=== PATIENT | female | born 1965 | race Caucasian/White ===

== ENCOUNTER 2016-06-30 11:37 | Emergency (ER) | payer SELFPAY ==
[~2016-06-30] VITALS: Ht 152.4 cm; Wt 72.0 kg
[~2016-06-30 11:37] MED LIST: ADVA500A INH; AZIT250T3 PO; PRIL20CA9 PO; ZOFR4TAB3 SL
[2016-06-30 11:39] VITALS: BP 214/90; PULSE 60; RESP 20; TEMP 97.7; O2SAT 95
[2016-06-30 12:30] VITALS: BP 176/81; PULSE 55; RESP 16; TEMP 98; O2SAT 96
[2016-06-30] MEDS ORDERED: DIAZEPAM 5 MG TAB PO ONE (12:45)
[2016-06-30] MEDS ORDERED: ACETAMINOPHEN/CODEINE 300 MG/30 MG TAB PO ONE (12:45)
--- NOTE | 2016-06-30 13:08 | PD ---
HPI Chief Complaint: Musculoskeletal Complaint Time Seen by Provider: 12:31 Travel History International Travel<30 days: No Contact w/Intl Traveler<30days: No Traveled to known affect area: No History of Present Illness HPI Patient is a 51-year-old female who presents to emergency room for evaluation of right shoulder pain and left shoulder pain which has been ongoing for the past few weeks. She reports that her right shoulder was initially hurting her, reports that moving her shoulder exacerbated the pain. Reports that now she is having increased pain to her left shoulder. Patient reports that if she moves her shoulders any way, "it hurts." Denies any trauma or any heavy lifting. Denies chest pains/sob. Reports that she sometimes notices pain from her neck to her arms as well. Patient reports that she did try taking ibuprofen with minimal relief of symptoms. PFSH Past Medical History Hx Anticoagulant Therapy: No Asthma: Yes Cardiovascular Problems: No Chemotherapy: No COPD: Yes Cerebrovascular Accident: No Diabetes: No GERD: Yes Respiratory: Yes (ASTHMA) Immunizations Current: Yes Thyroid Disease: Yes ?: Not Menopausal: Yes Past Surgical History Hysterectomy: Yes Social History Alcohol Use: Yes (several times per week) Tobacco Use: Yes Substance Use: No Allergies-Medications (Allergen,Severity, Reaction): Coded Allergies: Amoxicillin (Verified Allergy, Severe, rash, 02/29/16) Metronidazole (Verified Allergy, Severe, Hives, 02/29/16) Reported Meds & Prescriptions Reported Meds & Active Scripts Active Valium (Diazepam) 5 Mg Tab 5 Mg PO BID PRN Zofran Odt (Ondansetron Odt) 4 Mg Tab 4 Mg SL Q6HR PRN Reported Advair Diskus Inh (Fluticasone-Salmeterol Inh) 500-50 Mcg/Blist Aer 1 Puff INH BID Rinse mouth after use. Prilosec (Omeprazole) 20 Mg Cap 20 Mg PO DAILY Review of Systems General / Constitutional: No: Fever Eyes: No: Visual changes HENT: No: Headaches Cardiovascular: No: Chest Pain or Discomfort Respiratory: No: Shortness of Breath Gastrointestinal: No: Abdominal Pain Genitourinary: No: Dysuria Musculoskeletal: Positive: Limited ROM (b/l shoulder), No: Pain Skin: No Rash Neurologic: No: Weakness Psychiatric: No: Depression Endocrine: No: Polydipsia Hematologic/Lymphatic: No: Easy Bruising Physical Exam Narrative GENERAL: No acute distress, nontoxic SKIN: Warm and dry. HEAD: Atraumatic. Normocephalic. EYES: Pupils equal and round. No scleral icterus. No injection or drainage. ENT: No nasal bleeding or discharge. Mucous membranes pink and moist. NECK: Trachea midline. No JVD. No midline tenderness CARDIOVASCULAR: Regular rate and rhythm. No murmur appreciated. RESPIRATORY: No accessory muscle use. Clear to auscultation. Breath sounds equal bilaterally. GASTROINTESTINAL: Abdomen soft, non-tender, nondistended. Hepatic and splenic margins not palpable. MUSCULOSKELETAL: No obvious deformities. No clubbing. No cyanosis. No edema. Patient with pain with range of motion of the left and right shoulder, no obvious deformities, pulses intact, no obvious open fracture, neurovascularly intact NEUROLOGICAL: Awake and alert. No obvious cranial nerve deficits. Motor grossly within normal limits. Normal speech. PSYCHIATRIC: Appropriate mood and affect; insight and judgment normal. Data Data Last Documented VS Vital Signs Date Time Temp Pulse Resp B/P Pulse Ox O2 Delivery O2 Flow Rate FiO2 06/30/16 12:30 98.0 55 16 176/81 96 06/30/16 11:39 Room Air Orders Shoulder, Complete (>2vws) (06/30/16 ) Shoulder, Complete (>2vws) (06/30/16 ) Spine, Cervical - Ltd (Ap&Lat) (06/30/16 ) Diazepam (Valium) (06/30/16 12:45) Acetamin-Codeine 300-30 Mg (Tylenol-Code (06/30/16 12:45) MDM Medical Decision Making Medical Screen Exam Complete: Yes Emergency Medical Condition: Yes Interpretation(s) EKG at 1515 sinus bradycardia at 53 beats minute, QT/QTc 440/432, incomplete right branch block, no acute ST or T-wave changes Vital Signs Date Time Temp Pulse Resp B/P Pulse Ox O2 Delivery O2 Flow Rate FiO2 06/30/16 12:30 98.0 55 16 176/81 96 06/30/16 11:39 97.7 60 20 214/90 95 Room Air Last Impressions Shoulder X-Ray 06/30/16 0000 Signed Impressions: Service Date/Time: June 13:51 - CONCLUSION: No acute fracture. Bryce Hill MD Shoulder X-Ray 06/30/16 0000 Signed Impressions: Service Date/Time: June 13:54 - CONCLUSION: Unremarkable examination of the left shoulder. Kiko Mejía MD Cervical Spine X-Ray 06/30/16 0000 Signed Impressions: Service Date/Time: June 13:48 - CONCLUSION: Straightening otherwise unremarkable cervical spine. Bryce Hill MD Differential Diagnosis Muscle strain, cervical neck strain, arthritis, cervical radiculopathy Narrative Course Patient is a 51-year-old female who presents to emergency room with complaints of pain to her right shoulder as well as left shoulder which has been ongoing for the past few weeks. Patient with no overt trauma to her shoulders. Patient reports pain with range of motion to her shoulders. Patient with no chest pain or shortness breath at this time, patient reports that she did try taking Motrin with minimal relief of symptoms. On evaluation, patient does have pain with range of motion to both shoulders. Discussed concerns of possible arthritis to shoulders. Plan to obtain x-rays of shoulders. Will give patient pain medications as well as muscle relaxers. Patient reevaluated, patient reports that she is feeling much better at this time. I reviewed x-ray results with patient. Copies of x-rays were given to patient. Given that her symptoms have been going on for the past few weeks, will have patient follow-up with orthopedic surgery as outpatient. Patient understands that she should not drive or operate heavy machinery while taking narcotic pain medications or muscle lashes. Diagnosis Primary Impression: Shoulder pain, bilateral Qualified Code: M25.511 - Acute pain of both shoulders Referrals: Surendra Kaiser MD Patient Instructions: Narcotic given in the ED, General Instructions Departure Forms: Tests/Procedures, Work Release Enter return to work date: Jul 04, 2016 Additional Instructions: Please follow-up with a primary care doctor as soon as possible Please follow-up with orthopedic surgeon as soon as possible Return to emergency room as needed Patient cannot drive or operate heavy machinery while taking narcotic pain medications Scripts Acetaminophen-Codeine (Tylenol-Codeine #3)300-30 mg Tab1 Tab PO Q4H PRN (PAIN) # 10 TAB Ref 0 Prov:Alona Simpson DO 06/30/16 Diazepam (Valium)5 Mg Tab5 Mg PO BID PRN (SPASM) #10 TAB Ref 0 Prov:Alona Simpson DO 06/30/16 Disposition: 01 DISCHARGE HOME Condition: Stable Alona Simpson DO Jun 30, 2016 13:08
--- NOTE | 2016-06-30 14:31 | RADRPT ---
EXAM DATE/TIME: 06/30/2016 13:48 [facility] COMPARISON: No previous studies available for comparison. INDICATIONS : Neck pain, no known trauma. MEDICAL HISTORY : None. SURGICAL HISTORY : None. ENCOUNTER: Initial ACUITY: 1 month PAIN SCORE: 10/10 LOCATION: Bilateral neck FINDINGS: Two projection examination was performed. There is straightening. No evidence of fracture or sublux ation. Vertebral body height is maintained. The disc spaces are maintained. The prevertebral soft tissues are of normal thickness. The atlanto-axial articulation is intact. CONCLUSION: Straightening otherwise unremarkable cervical spine. Bryce Hill MD on June 30, 2016 at 14:27 Board Certified Radiologist. This report was verified electronically.
--- NOTE | 2016-06-30 14:31 | RADRPT ---
EXAM DATE/TIME: 06/30/2016 13:51 [facility] COMPARISON: No previous studies available for comparison. INDICATIONS : Right shoulder pain, no known trauma. MEDICAL HISTORY : None. SURGICAL HISTORY : None. ENCOUNTER: Initial ACUITY: 1 month PAIN SCORE: 10/10 LOCATION: Right shoulder FINDINGS: Multiple view examination of the right shoulder demonstrates no evidence of fracture or dislocation. The glenohumeral and acromioclavicular joints are maintained. There is normal range of motion betwe en internal and external rotation. Bony mineralization is normal. CONCLUSION: No acute fracture. Bryce Hill MD on June 30, 2016 at 14:30 Board Certified Radiologist. This report was verified electronically.
--- NOTE | 2016-06-30 14:44 | RADRPT ---
EXAM DATE/TIME: 06/30/2016 13:54 [facility] COMPARISON: No previous studies available for comparison. INDICATIONS : Left shoulder pain, no known trauma. MEDICAL HISTORY : None. SURGICAL HISTORY : None. ENCOUNTER: Initial ACUITY: 2 days PAIN SCORE: 7/10 LOCATION: Left shoulder FINDINGS: Multiple view examination of the left shoulder demonstrates no evidence of fracture or dislocation. The glenohumeral and acromioclavicular joints are maintained. There is normal range of motion betwee n internal and external rotation. Bony mineralization is normal. CONCLUSION: Unremarkable examination of the left shoulder. Kiko Mejía MD on June 30, 2016 at 14:42 Board Certified Radiologist. This report was verified electronically.
[2016-06-30] MEDS ORDERED: DIAZ5 PO (16:43)
[2016-06-30] MEDS ORDERED: TYLETAB34 PO (16:50)
--- NOTE | 2016-07-01 23:31 | EKG ---
Date Performed: 06/30/2016 Time Performed: 15:15:43 PTAGE: 51 years EKG: SINUS BRADYCARDIA INCOMPLETE RIGHT BUNDLE BRANCH BLOCK BORDERLINE ECG PREVIOUS TRACING : 06/28/2012 14.52 DOCTOR: Alexandre Bates Interpretating Date/Time 07/01/2016 23:29:26
== END 2016-06-30 17:15 | disposition home or self-care (01) ==
LOC: NEPC 11:37
DX: M25.512 Pain in left shoulder (principal); M25.511 Pain in right shoulder; M54.2 Cervicalgia; J44.9 Chronic obstructive pulmonary disease, unspecified; K21.9 Gastro-esophageal reflux disease without esophagitis; Z72.0 Tobacco use; R00.1 Bradycardia, unspecified; I45.10 Unspecified right bundle-branch block
CPT/HCPCS: 72040; 73030; 93005; 99283

== ENCOUNTER 2016-10-18 10:59 | Emergency (ER) | payer SELFPAY ==
[~2016-10-18] VITALS: Ht 152.4 cm; Wt 70.0 kg
[~2016-10-18 10:59] MED LIST changes: -AZIT250T3 PO; +DIAZ5 PO; +TYLETAB34 PO
[2016-10-18 11:02] VITALS: BP 188/96; PULSE 79; RESP 22; TEMP 97.7; O2SAT 98
[2016-10-18] MEDS ORDERED: RESP: ALBUTEROL 2.5 MG/IPRATROPIUM 0.5 MG NEB (SCH) INH ONE (12:00)
[2016-10-18 12:12] LABS: AUTOMATED NEUTROPHIL # 4.6 TH/MM3 (1.8-7.7); BASOPHIL % 0.3 % (0.0-2.0); EOSINOPHIL # 0.4 TH/MM3 (0-0.4); HEMATOCRIT 42.1 % (35.0-46.0); HEMO FLAGS DIFF FINAL; LYMPH % 19.9 % (9.0-44.0); LYMPHOCYTE # 1.3 TH/MM3 (1.0-4.8); MEAN CORPUSCULAR HGB CONC 33.7 % (32.0-36.0); NEUT % 68.8 % (16.0-70.0); PLATELET COUNT 178 TH/MM3 (150-450); RED BLOOD COUNT 4.43 MIL/MM3 (4.00-5.30); RED CELL DISTRIBUTION WIDTH 14.3 % (11.6-17.2); WHITE BLOOD COUNT 6.6 TH/MM3 (4.0-11.0)
[2016-10-18] MEDS ORDERED: PRED20 PO (12:24)
[2016-10-18] MEDS ORDERED: AZIT250T3 PO (12:24)
[2016-10-18] MEDS ORDERED: BENZ100 PO (12:24)
[2016-10-18] MEDS ORDERED: ALBUAER3 INH (12:24)
--- NOTE | 2016-10-18 12:30 | PD ---
HPI Chief Complaint: Cold / Flu Symptoms Time Seen by Provider: 12:25 Travel History International Travel<30 days: No Contact w/Intl Traveler<30days: No Traveled to known affect area: No History of Present Illness HPI 51-year-old female that presents to the ED for evaluation of cold-like symptoms. Per patient she's had sinus pressure for the past week to has not not to her chest. Per patient she has congestion in her chest as well as having productive cough. Per patient she has a lot of pain on the maxillary and frontal sinuses. Per patient she's had this before but she's never had a call to her chest. Per patient she does have a history of smoking and uses inhalers. States that she feels like she can take a deep breath and this is what causes the pressure. She denies any heart issues. No palpitations. Does having some chills and sweats. No fevers. No sick contacts. No recent travel. Per patient she has not seen anybody for this. She does have an allergy to amoxicillin and metronidazole. No abdominal pain. No nausea or vomiting. Pain per patient is 6/10, more on the face. PFSH Past Medical History Hx Anticoagulant Therapy: No Asthma: Yes Cardiovascular Problems: No Chemotherapy: No COPD: Yes Cerebrovascular Accident: No Diabetes: No Diverticulitis: Yes GERD: Yes Respiratory: Yes (ASTHMA) Immunizations Current: Yes Thyroid Disease: Yes ?: Not Menopausal: Yes Past Surgical History Hysterectomy: Yes Social History Alcohol Use: Yes Tobacco Use: Yes Substance Use: No Allergies-Medications (Allergen,Severity, Reaction): Coded Allergies: Amoxicillin (Verified Allergy, Severe, rash, 02/29/16) Metronidazole (Verified Allergy, Severe, Hives, 02/29/16) Reported Meds & Prescriptions Reported Meds & Active Scripts Active Tessalon Perles (Benzonatate) 100 Mg Cap 100 Mg PO TID PRN Proair Hfa 8.5 GM Inh (Albuterol Sulfate) 90 Mcg/Act Aer 2 Puff INH Q4-6H PRN 108 mcg/actuation Prednisone 20 Mg Tab 20 Mg PO BID Azithromycin 250 Mg Tab 250 Mg PO DIRECTED Take 2 tabs (500 mg) on day 1 then 1 tab daily x 4 days. Tylenol-Codeine #3 (Acetaminophen-Codeine) 300-30 mg Tab 1 Tab PO Q4H PRN Valium (Diazepam) 5 Mg Tab 5 Mg PO BID PRN Zofran Odt (Ondansetron Odt) 4 Mg Tab 4 Mg SL Q6HR PRN Reported Advair Diskus Inh (Fluticasone-Salmeterol Inh) 500-50 Mcg/Blist Aer 1 Puff INH BID Rinse mouth after use. Prilosec (Omeprazole) 20 Mg Cap 20 Mg PO DAILY Review of Systems Except as stated in HPI: all other systems reviewed are Neg Physical Exam Narrative GENERAL: Well-nourished, well-developed patient in no apparent distress. SKIN: Warm and dry. HEAD: Atraumatic. Normocephalic. EYES: Pupils equal and round reactive to light and accommodation. No scleral icterus. No injection or drainage. ENT: No nasal bleeding or discharge. Mucous membranes pink and moist. TMs are clear with no sign of infection or perforation. No mastoid tenderness. Ear canals are intact bilaterally. No lymphadenopathy. Nostril mucosa is red and moist with clear mucus noted. No sinus tenderness to palpation noted. Tonsils are not enlarged or swollen. No ulvua Deviation. Tongue is midline. NECK: Trachea midline. No JVD. No meningeal signs noted CARDIOVASCULAR: Regular rate and rhythm. No murmurs, S3, S4. RESPIRATORY: No accessory muscle use. Mild wheezing heard. Breath sounds equal bilaterally. GASTROINTESTINAL: Abdomen soft, non-tender, nondistended. Hepatic and splenic margins not palpable. MUSCULOSKELETAL: Extremities without clubbing, cyanosis, or edema. No obvious deformities. NEUROLOGICAL: Awake and alert. No obvious cranial nerve deficits. Motor grossly within normal limits. Five out of 5 muscle strength in the arms and legs. Normal speech. PSYCHIATRIC: Appropriate mood and affect; insight and judgment normal. Data Data Last Documented VS Vital Signs Date Time Temp Pulse Resp B/P Pulse Ox O2 Delivery O2 Flow Rate FiO2 10/18/16 11:02 97.7 79 22 188/96 98 Orders Chest, Single Ap (10/18/16 11:07) Electrocardiogram (10/18/16 11:13) Complete Blood Count With Diff (10/18/16 11:13) Basic Metabolic Panel (Bmp) (10/18/16 11:13) Ckmb (Isoenzyme) Profile (10/18/16 11:13) Troponin I (10/18/16 11:13) Albuterol-Ipratropium Neb (Duoneb Neb) (10/18/16 12:00) Labs Laboratory Tests Test 10/18/16 11:50 White Blood Count 6.6 TH/MM3 Red Blood Count 4.43 MIL/MM3 Hemoglobin 14.2 GM/DL Hematocrit 42.1 % Mean Corpuscular Volume 95.0 FL Mean Corpuscular Hemoglobin 32.0 PG Mean Corpuscular Hemoglobin 33.7 % Concent Red Cell Distribution Width 14.3 % Platelet Count 178 TH/MM3 Mean Platelet Volume 8.7 FL Neutrophils (%) (Auto) 68.8 % Lymphocytes (%) (Auto) 19.9 % Monocytes (%) (Auto) 5.0 % Eosinophils (%) (Auto) 6.0 % Basophils (%) (Auto) 0.3 % Neutrophils # (Auto) 4.6 TH/MM3 Lymphocytes # (Auto) 1.3 TH/MM3 Monocytes # (Auto) 0.3 TH/MM3 Eosinophils # (Auto) 0.4 TH/MM3 Basophils # (Auto) 0.0 TH/MM3 CBC Comment DIFF FINAL Differential Comment Sodium Level 140 MEQ/L Potassium Level 4.2 MEQ/L Chloride Level 108 MEQ/L Carbon Dioxide Level 25.1 MEQ/L Anion Gap 7 MEQ/L Blood Urea Nitrogen 14 MG/DL Creatinine 0.70 MG/DL Estimat Glomerular Filtration 88 ML/MIN Rate Random Glucose 98 MG/DL Calcium Level 8.6 MG/DL Total Creatine Kinase 100 U/L Troponin I LESS THAN 0.02 NG/ML MDM Medical Decision Making Medical Screen Exam Complete: Yes Emergency Medical Condition: Yes Medical Record Reviewed: Yes Interpretation(s) Chest x-ray negative for acute disease. CBC & BMP Diagram 10/18/16 11:50 EKG shows sinus rhythm with no sign of acute ischemia or arrhythmia read by me and attending. Troponin and CKMB negative Differential Diagnosis Sinusitis versus bronchitis versus pneumonia versus chest pain versus ACS Narrative Course 51-year-old female that presents to the ED for evaluation of cold-like symptoms. Patient was properly examined and was found to have signs and symptoms which appear to be consistent with what appears to be sinusitis with bronchitis. Labs and imaging were ordered. Labs and imaging were essentially unremarkable. Patient was reassured. At this time we'll treat her symptoms for her sinusitis and bronchitis. Patient was given prescription for Tessalon Perles, pro-air, prednisone, azithromycin. Told to discontinue smoking. Follow with PCP. See ED for any worsening symptoms. Diagnosis Primary Impression: Sinusitis Qualified Code: J01.10 - Acute non-recurrent frontal sinusitis Additional Impression: Bronchitis Patient Instructions: General Instructions Departure Forms: Tests/Procedures, Work Release Enter return to work date: Oct 20, 2016 Additional Instructions: Motrin and Tylenol for pain and fever. You can use [id number] antihistamine as well as well as Mucinex as needed for runny nose and congestion. Cough drops for cough as needed. Drink plenty of fluids. Follow-up with PCP. See ED for worsening symptoms. Med/Other Pt SpecificInfo: Prescription(s) given Scripts Benzonatate (Tessalon Perles)100 Mg [id number] Mg PO TID PRN (COUGH) #15 CAP Prov:Kiko Ashford MD 10/18/16 Albuterol 8.5 GM Inh (Proair Hfa 8.5 GM Inh)90 Mcg/Act Aer2 Puff INH Q4-6H PRN ( SHORTNESS OF BREATH) #1 INHALER 108 mcg/actuation Prov:Kiko Ashford MD 10/18/16 Prednisone 20 Mg Tab20 Mg PO BID #10 TAB Prov:Kiko Ashford MD 10/18/16 Azithromycin 250 Mg Rxj700 Mg PO DIRECTED #6 TAB Take 2 tabs (500 mg) on day 1 then 1 tab daily x 4 days. Prov:Kiko Ashford MD 10/18/16 Disposition: 01 DISCHARGE HOME Condition: Stable Akhil Wall Oct 18, 2016 12:30
--- NOTE | 2016-10-18 12:35 | RADRPT ---
EXAM DATE/TIME: 10/18/2016 11:52 [facility] COMPARISON: CHEST SINGLE AP, February 29, 2016, 13:09. INDICATIONS : Shortness of breath. MEDICAL HISTORY : None. SURGICAL HISTORY : None. ENCOUNTER: Initial ACUITY: 1 week PAIN SCORE: 0/10 LOCATION: Bilateral chest FINDINGS: A single view of the chest demonstrates the lungs to be symmetrically aerated without evidence of mas s, infiltrate or effusion. The cardiomediastinal contours are unremarkable. Osseous structures are intact. CONCLUSION: Normal examination. Colten Vickers MD on October 18, 2016 at 12:33 Board Certified Radiologist. This report was verified electronically.
[2016-10-18 12:40] LABS: ANION GAP 7 MEQ/L (5-15); BICARBONATE 25.1 MEQ/L (21.0-32.0); BLOOD UREA NITROGEN 14 MG/DL (7-18); CHLORIDE 108 MEQ/L (98-107); GLOMERULAR FILTRATION RATE 88 ML/MIN (>89); SODIUM (NA) 140 MEQ/L (136-145)
[2016-10-18 12:41] LABS: CREATINE KINASE 100 U/L (26-192); POTASSIUM 4.2 MEQ/L (3.5-5.1)
[2016-10-18 14:03] VITALS: BP 124/72
--- NOTE | 2016-10-18 17:03 | EKG ---
Date Performed: 10/18/2016 Time Performed: 11:19:32 PTAGE: 51 years EKG: Sinus rhythm INCOMPLETE RIGHT BUNDLE BRANCH BLOCK BORDERLINE ECG PREVIOUS TRACING : 06/30/2016 15.15 No significant change from previous tracing noted. DOCTOR: Angel Clay Interpretating Date/Time 10/18/2016 17:01:49
== END 2016-10-18 14:10 | disposition home or self-care (01) ==
LOC: NEPC 10:59
DX: J32.9 Chronic sinusitis, unspecified (principal); R94.31 Abnormal electrocardiogram [ECG] [EKG]; Z72.0 Tobacco use
CPT/HCPCS: 71010; 80048; 82550; 84484; 85025; 93005; 94664

== ENCOUNTER 2017-05-15 18:34 | Emergency (ER) | payer SELFPAY ==
[~2017-05-15] VITALS: Ht 152.4 cm; Wt 70.5 kg
[~2017-05-15 18:34] MED LIST changes: +ALBUAER3 INH; +AZIT250T3 PO; +BENZ100 PO; +PRED20 PO
[2017-05-15 18:36] VITALS: BP 144/89; PULSE 93; RESP 18; TEMP 98.6; O2SAT 94
--- NOTE | 2017-05-15 19:09 | PD ---
HPI Chief Complaint: Cold / Flu Symptoms Time Seen by Provider: 19:00 Travel History International Travel<30 days: No Contact w/Intl Traveler<30days: No Traveled to known affect area: No History of Present Illness HPI 52-year-old female with history of COPD presents to the emergency department for evaluation. Patient believes she has the flu. She has had fever, body aches, cough, chest congestion worsening over last 3 days. She has had diarrhea 5 or 6 times today. Denies any hematemesis. She has not vomited. She denies any chest pain. She has no other symptoms to report. PFSH Past Medical History Hx Anticoagulant Therapy: No Asthma: Yes Cardiovascular Problems: No Chemotherapy: No COPD: Yes Cerebrovascular Accident: No Diabetes: No Diverticulitis: Yes GERD: Yes Respiratory: Yes (asthma) Immunizations Current: Yes Thyroid Disease: Yes Menopausal: Yes Past Surgical History Hysterectomy: Yes Social History Alcohol Use: Yes Tobacco Use: Yes Substance Use: No Allergies-Medications (Allergen,Severity, Reaction): Coded Allergies: amoxicillin (Unverified Allergy, Severe, rash, 05/15/17) metronidazole (Unverified Allergy, Severe, Hives, 05/15/17) Reported Meds & Prescriptions Reported Meds & Active Scripts Active Zithromax Z-Rishabh (Azithromycin) 250 Mg Dspk 250 Mg PO DIRECTED 500 MG (2 tabs) day 1, then 1 tab days 2-5. Proair Hfa 8.5 GM Inh (Albuterol Sulfate) 90 Mcg/Act Aer 2 Puff INH Q4HR PRN 108 mcg/actuation Prednisone 50 Mg Tab 50 Mg PO DAILY 5 Days Reported Prilosec (Omeprazole Magnesium) 20 Mg Tab 20 Mg PO DAILY Review of Systems Except as stated in HPI: all other systems reviewed are Neg Physical Exam Narrative GENERAL: Well-nourished female patient in no acute distress. SKIN: Focused skin assessment warm/dry. HEAD: Atraumatic. Normocephalic. EYES: Pupils equal and round. No scleral icterus. No injection or drainage. ENT: No nasal bleeding or discharge. Mucous membranes pink and moist. NECK: Trachea midline. No JVD. CARDIOVASCULAR: Regular rate and rhythm. No murmur appreciated. RESPIRATORY: No accessory muscle use. Inspiratory and expiratory wheeze to auscultation. Coarse cough. Breath sounds equal bilaterally. GASTROINTESTINAL: Abdomen soft, non-tender, nondistended. Hepatic and splenic margins not palpable. MUSCULOSKELETAL: No obvious deformities. No clubbing. No cyanosis. No edema. NEUROLOGICAL: Awake and alert. No obvious cranial nerve deficits. Motor grossly within normal limits. Normal speech. PSYCHIATRIC: Appropriate mood and affect; insight and judgment normal. Data Data Last Documented VS Vital Signs Date Time Temp Pulse Resp B/P (MAP) Pulse Ox O2 Delivery O2 Flow Rate FiO2 05/15/17 19:51 05/15/17 19:14 77 17 96 Room Air 05/15/17 18:36 98.6 Orders Orders Complete Blood Count With Diff (05/15/17 18:40) Basic Metabolic Panel (Bmp) (05/15/17 18:40) Influenzae A/B Antigen (05/15/17 18:40) Chest, Pa & Lat (05/15/17 ) Albuterol-Ipratropium Neb (Duoneb Neb) (05/15/17 19:15) Dexamethasone Inj (Decadron Inj) (05/15/17 19:15) Ed Discharge Order (05/15/17 19:33) Labs Laboratory Tests Test 05/15/17 18:47 White Blood Count 3.3 TH/MM3 Red Blood Count 4.77 MIL/MM3 Hemoglobin 15.5 GM/DL Hematocrit 45.0 % Mean Corpuscular Volume 94.4 FL Mean Corpuscular Hemoglobin 32.6 PG Mean Corpuscular Hemoglobin Concent 34.5 % Red Cell Distribution Width 13.3 % Platelet Count 113 TH/MM3 Mean Platelet Volume 9.2 FL Neutrophils (%) (Auto) 56.2 % Lymphocytes (%) (Auto) 30.3 % Monocytes (%) (Auto) 11.0 % Eosinophils (%) (Auto) 1.8 % Basophils (%) (Auto) 0.7 % Neutrophils # (Auto) 1.9 TH/MM3 Lymphocytes # (Auto) 1.0 TH/MM3 Monocytes # (Auto) 0.4 TH/MM3 Eosinophils # (Auto) 0.1 TH/MM3 Basophils # (Auto) 0.0 TH/MM3 CBC Comment DIFF FINAL Differential Comment Blood Urea Nitrogen 19 MG/DL Creatinine 0.90 MG/DL Random Glucose 92 MG/DL Calcium Level 8.2 MG/DL Sodium Level 136 MEQ/L Potassium Level 3.8 MEQ/L Chloride Level 104 MEQ/L Carbon Dioxide Level 23.1 MEQ/L Anion Gap 9 MEQ/L Estimat Glomerular Filtration Rate 65 ML/MIN MDM Medical Decision Making Medical Screen Exam Complete: Yes Emergency Medical Condition: Yes Medical Record Reviewed: Yes Differential Diagnosis Pneumonia versus influenza versus bronchitis versus COPD exacerbation Narrative Course 52 year old female presents to emergency department for evaluation. Patient appears without distress. She does have inspiratory and expiratory wheezes and coarse cough. Chest x-ray shows bronchiolitis. Patient is given breathing treatments and upon reexam, her symptoms have improved significantly. She states she feels much better. She'll be discharged home with a prescription for azithromycin Z-Rishabh, steroids, and DuoNeb treatments. She is counseled on tobacco cessation. She is encouraged to follow-up the primary care provider and return immediately with any acute worsening symptoms. Diagnosis Primary Impression: Bronchitis Additional Impression: COPD exacerbation Referrals: Primary Care Physician Patient Instructions: Acute Bronchitis (ED), General Instructions Additional Instructions: Humidified air may help to alleviate symptoms Follow-up with her primary care provider Avoid cigarette smoking Return immediately with any acute worsening of symptoms Med/Other Pt SpecificInfo: Prescription(s) given Scripts Azithromycin (Zithromax Z-Rishabh) 250 Mg Dspk 250 MG PO DIRECTED for Infection, #1 DSPK 0 Refills 500 MG (2 tabs) day 1, then 1 tab days 2-5. Prov: Sarahi Darby 05/15/17 Albuterol 8.5 GM Inh (Proair Hfa 8.5 GM Inh) 90 Mcg/Act Aer 2 PUFF INH Q4HR Y for SHORTNESS OF BREATH, #1 INHALER 0 Refills 108 mcg/actuation Prov: Sarahi Darby 05/15/17 Prednisone (Prednisone) 50 Mg Tab 50 MG PO DAILY for 5 Days, #5 TAB 0 Refills Prov: Sarahi Darby 05/15/17 Disposition: 01 DISCHARGE HOME Condition: Stable Sarahi Darby May 15, 2017 19:09
[2017-05-15 19:13] VITALS: BP 151/80; PULSE 77; RESP 17; O2SAT 96
[2017-05-15 19:13] LABS: AUTOMATED NEUTROPHIL # 1.9 TH/MM3 (1.8-7.7); BASOPHIL % 0.7 % (0.0-2.0); EOSINOPHIL # 0.1 TH/MM3 (0-0.4); EOSINOPHIL % 1.8 % (0.0-4.0); HEMOGLOBIN 15.5 GM/DL (11.6-15.3); LYMPH % 30.3 % (9.0-44.0); MEAN CELL VOLUME 94.4 FL (80.0-100.0); MEAN CORPUSCULAR HEMOGLOBIN 32.6 PG (27.0-34.0); MEAN CORPUSCULAR HGB CONC 34.5 % (32.0-36.0); MEAN PLATELET VOLUME 9.2 FL (7.0-11.0); MONOCYTE # 0.4 TH/MM3 (0-0.9); NEUT % 56.2 % (16.0-70.0); PLATELET COUNT 113 TH/MM3 (150-450); RED BLOOD COUNT 4.77 MIL/MM3 (4.00-5.30); RED CELL DISTRIBUTION WIDTH 13.3 % (11.6-17.2); WHITE BLOOD COUNT 3.3 TH/MM3 (4.0-11.0)
[2017-05-15] MEDS ORDERED: DEXAMETHASONE SOD PHOS 4 MG/ML VIAL IM ONE (19:15)
[2017-05-15] MEDS ORDERED: PRIL20TA2 PO (19:17)
[2017-05-15] MEDS: RESP: ALBUTEROL 2.5 MG/IPRATROPIUM 0.5 MG NEB (SCH) INH (19:18)
--- NOTE | 2017-05-15 19:26 | RADRPT ---
EXAM DATE/TIME: 05/15/2017 19:00 [facility] COMPARISON: No previous studies available for comparison. INDICATIONS : Cough, congestion MEDICAL HISTORY : Asthma SURGICAL HISTORY : None. ENCOUNTER: Initial ACUITY: 3 days PAIN SCORE: 4/10 LOCATION: Bilateral chest FINDINGS: PA and lateral views of the chest demonstrate the lungs to be symmetrically aerated without evidence of mass, infiltrate or effusion. Mild peribronchial thickening particularly involving the upper lobes . The cardiomediastinal contours are unremarkable. Osseous structures are intact. CONCLUSION: Bronchitis/bronchiolitis. Isaac Peterson Jr., MD on May 15, 2017 at 19:22 Board Certified Radiologist. This report was verified electronically.
[2017-05-15 19:29] LABS: BICARBONATE 23.1 MEQ/L (21.0-32.0); CALCIUM 8.2 MG/DL (8.5-10.1); CREATININE 0.9 MG/DL (0.50-1.00)
[2017-05-15] MEDS ORDERED: ZITHTAB PO (19:35)
[2017-05-15] MEDS ORDERED: PRED50 PO (19:35)
[2017-05-15] MEDS ORDERED: ALBUAER3 INH (19:35)
== END 2017-05-15 20:01 | disposition home or self-care (01) ==
LOC: NEPD 18:34
DX: R50.9 Fever, unspecified (principal); J40 Bronchitis, not specified as acute or chronic; J44.1 Chronic obstructive pulmonary disease with (acute) exacerbation; R09.89 Other specified symptoms and signs involving the circulatory and respiratory systems; K21.9 Gastro-esophageal reflux disease without esophagitis; Z72.0 Tobacco use
CPT/HCPCS: 71046; 80048; 85025; 87804; 94640; 94664; 96372; 99285; J1100

== ENCOUNTER 2017-06-19 11:38 | Emergency (ER) | payer SELFPAY ==
[~2017-06-19 11:38] MED LIST changes: -ADVA500A INH; -AZIT250T3 PO; -BENZ100 PO; -DIAZ5 PO; -PRED20 PO; +PRED50 PO; -PRIL20CA9 PO; +PRIL20TA2 PO; -TYLETAB34 PO; +ZITHTAB PO; -ZOFR4TAB3 SL
[2017-06-19] MEDS ORDERED: IOHEXOL 350 MG/ML 10 ML VIAL (for RAD DIAG) IVCONTRAST ONE (11:39)
[2017-06-19 11:43] VITALS: BP 146/78; PULSE 89; RESP 16; TEMP 98.6; O2SAT 96
[2017-06-19] MEDS: RESP: ALBUTEROL 2.5 MG/IPRATROPIUM 0.5 MG NEB (SCH) INH ×2 (12:00→12:15)
[2017-06-19] MEDS ORDERED: SODIUM CHLORIDE 0.9% FLUSH 10 ML FLUSH IVF PRN (12:00)
[2017-06-19 12:24] VITALS: BP 160/85; PULSE 66; RESP 16; TEMP 98.6; O2SAT 97
--- NOTE | 2017-06-19 12:35 | RADRPT ---
EXAM DATE/TIME: 06/19/2017 12:10 [facility] COMPARISON: CHEST SINGLE AP, October 18, 2016, 11:52. INDICATIONS : Short of breath, pain in chest and back MEDICAL HISTORY : Chronic obstructive pulmonary disease. SURGICAL HISTORY : None. ENCOUNTER: Initial ACUITY: 1 month PAIN SCORE: 4/10 LOCATION: Bilateral chest FINDINGS: A single view of the chest demonstrates the lungs to be symmetrically aerated without evidence of mas s, infiltrate or effusion. The cardiomediastinal contours are unremarkable. Osseous structures are intact. CONCLUSION: No acute disease. Isaac Peterson Jr., MD on June 19, 2017 at 12:33 Board Certified Radiologist. This report was verified electronically.
[2017-06-19 13:23] LABS: AUTOMATED NEUTROPHIL # 5.3 TH/MM3 (1.8-7.7); BASOPHIL % 0.6 % (0.0-2.0); EOSINOPHIL # 0.3 TH/MM3 (0-0.4); EOSINOPHIL % 4.3 % (0.0-4.0); HEMATOCRIT 40.1 % (35.0-46.0); HEMOGLOBIN 13.6 GM/DL (11.6-15.3); LYMPH % 23.7 % (9.0-44.0); LYMPHOCYTE # 1.9 TH/MM3 (1.0-4.8); MEAN CELL VOLUME 93.3 FL (80.0-100.0); MEAN CORPUSCULAR HEMOGLOBIN 31.8 PG (27.0-34.0); MEAN CORPUSCULAR HGB CONC 34.1 % (32.0-36.0); MEAN PLATELET VOLUME 8.2 FL (7.0-11.0); MONO % 4.7 % (0.0-8.0); MONOCYTE # 0.4 TH/MM3 (0-0.9); NEUT % 66.7 % (16.0-70.0); PLATELET COUNT 200 TH/MM3 (150-450); RED CELL DISTRIBUTION WIDTH 14.2 % (11.6-17.2)
[2017-06-19 13:36] LABS: ALBUMIN 3.9 GM/DL (3.4-5.0); AST (GOT) 14 U/L (15-37); BICARBONATE 24.1 MEQ/L (21.0-32.0); BLOOD UREA NITROGEN 9 MG/DL (7-18); CALCIUM 8.5 MG/DL (8.5-10.1); CHLORIDE 107 MEQ/L (98-107); CREATININE 0.59 MG/DL (0.50-1.00); GLOMERULAR FILTRATION RATE 106 ML/MIN (>89); GLUCOSE,RANDOM 86 MG/DL (74-106); INTERNATIONAL NORMALIZED RATIO 1.1 RATIO; PROTHROMBIN TIME - PATIENT 10.7 SEC (9.8-11.6); SODIUM (NA) 140 MEQ/L (136-145)
[2017-06-19 13:37] LABS: ALT (GPT) 16 U/L (10-53)
[2017-06-19 13:40] LABS: ALKALINE PHOSPHATASE 102 U/L (45-117); TOTAL BILIRUBIN ADULT 0.5 MG/DL (0.2-1.0); TOTAL PROTEIN 7.2 GM/DL (6.4-8.2); TROPONIN I LESS THAN 0.02 NG/ML (0.02-0.05)
--- NOTE | 2017-06-19 14:49 | RADRPT ---
EXAM DATE/TIME: 06/19/2017 14:20 [facility] COMPARISON: No previous studies available for comparison. INDICATIONS : Shortness of breath,substernal chest pain IV CONTRAST: 73 cc Omnipaque 350 (iohexol) IV RADIATION DOSE: 7.79 CTDIvol (mGy) MEDICAL HISTORY : Chronic obstructive pulmonary disease. Diverticulitis. Thyroid disease SURGICAL HISTORY : Hysterectomy. ENCOUNTER: Initial ACUITY: 1 day PAIN SCALE: 8/10 LOCATION: chest TECHNIQUE: Volumetric scanning of the chest was performed using a pulmonary embolism protocol MIP images were re constructed. Using automated exposure control and adjustment of the mA and/or kV according to patien t size, radiation dose was kept as low as reasonably achievable to obtain optimal diagnostic quality images. DICOM format image data is available electronically for review and comparison. Follow-up recommendations for detected pulmonary nodules are based at a minimum on nodule size and pa tient risk factors according to Fleischner Society Guidelines. FINDINGS: PULMONARY ARTERIES: No filling defects are seen in the pulmonary arteries through the segmental level. LUNGS: There is no consolidation or pneumothorax . No concerning pulmonary nodule is visualized. PLEURAE: There is no pleural thickening or pleural effusion. MEDIASTINUM: There is good visualization of the great vessels of the middle mediastinum. No evidence of mediastin al or hilar adenopathy/mass. CONCLUSION: 1. The study is negative for pulmonary embolism. 2. 1.5 cm rounded subcutaneous soft tissue mass lower posterolateral left chest of uncertain signific ance. Recommend correlation with clinical exam. Isaac Cody MD on June 19, 2017 at 14:45 Board Certified Radiologist. This report was verified electronically.
--- NOTE | 2017-06-19 15:17 | PD ---
HPI Chief Complaint: Respiratory Symptoms Time Seen by Provider: 11:45 Travel History International Travel<30 days: No Contact w/Intl Traveler<30days: No Traveled to known affect area: No History of Present Illness HPI Patient is a 52-year-old female who comes in complaining of shortness of breath. She says that she was diagnosed with bronchitis in May, and since then has been feeling a little short of breath. She does have history of COPD, and she says that the bronchitis seems to have exacerbated her COPD. She denies fever chills. She has been coughing. She is still smoking. She denies any chest pain. She says the shortness of breath is worse with exertion. She does not have an albuterol inhaler at home. She denies any leg pain or swelling. Severity is mild to moderate. PFSH Past Medical History Hx Anticoagulant Therapy: No Asthma: Yes Cardiovascular Problems: No Chemotherapy: No COPD: Yes Cerebrovascular Accident: No Diabetes: No Diverticulitis: Yes GERD: Yes Respiratory: Yes (COPD) Immunizations Current: Yes Thyroid Disease: Yes Menopausal: Yes Past Surgical History Hysterectomy: Yes Social History Alcohol Use: Yes Tobacco Use: Yes Substance Use: No Allergies-Medications (Allergen,Severity, Reaction): Coded Allergies: amoxicillin (Verified Allergy, Severe, rash, 06/19/17) metronidazole (Verified Allergy, Severe, Hives, 06/19/17) Reported Meds & Prescriptions Reported Meds & Active Scripts Active No Active Prescriptions or Reported Medications Review of Systems Except as stated in HPI: all other systems reviewed are Neg General / Constitutional: No: Fever, Chills Eyes: No: Blurred Vision HENT: No: Headaches, Lightheadedness Cardiovascular: No: Chest Pain or Discomfort Respiratory: Positive: Cough, Shortness of Breath Gastrointestinal: No: Nausea, Vomiting Musculoskeletal: No: Myalgias Skin: No Rash, No Change in Pigmentation Neurologic: No: Weakness, Dizziness Physical Exam Narrative GENERAL: Awake and alert, in no acute distress. SKIN: Focused skin assessment warm/dry. HEAD: Atraumatic. Normocephalic. EYES: Pupils equal and round. No scleral icterus. ENT: Mucous membranes pink and moist. NECK: Trachea midline. No JVD. CARDIOVASCULAR: Regular rate and rhythm. No murmur appreciated. RESPIRATORY: No accessory muscle use. Coarse breath sounds with occasional wheezing. Breath sounds equal bilaterally. GASTROINTESTINAL: Abdomen soft, non-tender, nondistended. MUSCULOSKELETAL: No obvious deformities. No clubbing. No cyanosis. No edema. NEUROLOGICAL: Awake and alert. No obvious cranial nerve deficits. Motor grossly within normal limits. Normal speech. PSYCHIATRIC: Appropriate mood and affect; insight and judgment normal. Data Data Last Documented VS Vital Signs Date Time Temp Pulse Resp B/P (MAP) Pulse Ox O2 Delivery O2 Flow Rate FiO2 06/19/17 12:24 68 16 98 Nasal Cannula 2.00 06/19/17 12:24 98.6 160/85 (110) Orders Orders Complete Blood Count With Diff (06/19/17 11:56) Comprehensive Metabolic Panel (06/19/17 11:56) B-Type Natriuretic Peptide (06/19/17 11:56) Act Partial Throm Time (Ptt) (06/19/17 11:56) Prothrombin Time / Inr (Pt) (06/19/17 11:56) Troponin I (06/19/17 11:56) Iv Access Insert/Monitor (06/19/17 11:56) Electrocardiogram (06/19/17 11:56) Ecg Monitoring (06/19/17 11:56) Oximetry (06/19/17 11:56) Oxygen Administration (06/19/17 11:56) Chest, Single Ap (06/19/17 11:56) Ct Pulmonary Angiogram (06/19/17 11:56) Sodium Chloride 0.9% Flush (Ns Flush) (06/19/17 12:00) Albuterol-Ipratropium Neb (Duoneb Neb) (06/19/17 12:00) Iohexol 350 Inj (Omnipaque 350 Inj) (06/19/17 11:39) Labs Laboratory Tests Test 06/19/17 12:00 White Blood Count 8.0 TH/MM3 Red Blood Count 4.30 MIL/MM3 Hemoglobin 13.6 GM/DL Hematocrit 40.1 % Mean Corpuscular Volume 93.3 FL Mean Corpuscular Hemoglobin 31.8 PG Mean Corpuscular Hemoglobin Concent 34.1 % Red Cell Distribution Width 14.2 % Platelet Count 200 TH/MM3 Mean Platelet Volume 8.2 FL Neutrophils (%) (Auto) 66.7 % Lymphocytes (%) (Auto) 23.7 % Monocytes (%) (Auto) 4.7 % Eosinophils (%) (Auto) 4.3 % Basophils (%) (Auto) 0.6 % Neutrophils # (Auto) 5.3 TH/MM3 Lymphocytes # (Auto) 1.9 TH/MM3 Monocytes # (Auto) 0.4 TH/MM3 Eosinophils # (Auto) 0.3 TH/MM3 Basophils # (Auto) 0.0 TH/MM3 CBC Comment DIFF FINAL Differential Comment Prothrombin Time 10.7 SEC Prothromb Time International Ratio 1.1 RATIO Activated Partial Thromboplast Time 25.1 SEC Blood Urea Nitrogen 9 MG/DL Creatinine 0.59 MG/DL Random Glucose 86 MG/DL Total Protein 7.2 GM/DL Albumin 3.9 GM/DL Calcium Level 8.5 MG/DL Alkaline Phosphatase 102 U/L Aspartate Amino Transf (AST/SGOT) 14 U/L Alanine Aminotransferase (ALT/SGPT) 16 U/L Total Bilirubin 0.5 MG/DL Sodium Level 140 MEQ/L Potassium Level 3.7 MEQ/L Chloride Level 107 MEQ/L Carbon Dioxide Level 24.1 MEQ/L Anion Gap 9 MEQ/L Estimat Glomerular Filtration Rate 106 ML/MIN Troponin I LESS THAN 0.02 NG/ML B-Type Natriuretic Peptide 71 PG/ML MDM Medical Decision Making Medical Screen Exam Complete: Yes Emergency Medical Condition: Yes Medical Record Reviewed: Yes Interpretation(s) ECG shows normal sinus rhythm at 96, no ST elevation or depression, normal intervals Differential Diagnosis COPD exacerbation vs PE vs pneumonia Narrative Course Patient is a 52-year-old female who comes in complaining of shortness of breath. Exam shows coarse breath sounds with occasional wheezing. Patient given 2 DuoNeb's. She will be discharged home with prescription for an albuterol inhaler as well as a course of steroids. CT of the chest performed shows no acute abnormalities. Chest x-ray shows no acute abnormalities. There was an incidental finding of a soft tissue mass in her left posterior chest, this appears to be a lipoma versus sebaceous cyst. Patient advised follow-up with the [facility]. Advised to quit smoking. Advised to return to the ED as needed for any worsening symptoms. Last 24 hours Impressions Chest X-Ray 06/19/17 1155 Signed Impressions: Service Date/Time: Monday, June 19, 2017 12:10 - CONCLUSION: No acute disease. Isaac Peterson Jr., MD CT Angiography 06/19/17 1156 Signed Impressions: Service Date/Time: Monday, June 19, 2017 14:20 - CONCLUSION: 1. The study is negative for pulmonary embolism. 2. 1.5 cm rounded subcutaneous soft tissue mass lower posterolateral left chest of uncertain significance. Recommend correlation with clinical exam. Isaac Cody MD Diagnosis Primary Impression: COPD exacerbation Referrals: [facility] call for appointment Patient Instructions: COPD (Chronic Obstructive Pulmonary Disease) (ED), General Instructions Additional Instructions: Try to quit smoking. Use her albuterol as needed for shortness of breath. Take the prednisone as directed. Return to the ED as needed for any worsening symptoms. Scripts Prednisone (Prednisone) 50 Mg Tab 50 MG PO DAILY for 5 Days, #5 TAB 0 Refills Prov: Kyleigh Olson MD 06/19/17 Albuterol 8.5 GM Inh (Proair Hfa 8.5 GM Inh) 90 Mcg/Act Aer 2 PUFF INH Q4-6H Y for SHORTNESS OF BREATH, #1 INHALER 0 Refills 108 mcg/actuation Prov: Kyleigh Olson MD 06/19/17 Disposition: 01 DISCHARGE HOME Condition: Stable Kyleigh Olson MD Jun 19, 2017 15:17
[2017-06-19] MEDS ORDERED: PRED50 PO (16:03)
[2017-06-19] MEDS ORDERED: ALBUAER3 INH (16:03)
[2017-06-19 16:06] VITALS: BP 142/80
--- NOTE | 2017-06-19 23:16 | EKG ---
Date Performed: 06/19/2017 Time Performed: 11:59:39 PTAGE: 52 years EKG: Sinus rhythm NORMAL ECG PREVIOUS TRACING : 10/18/2016 11.19 DOCTOR: Alexandre Bates Interpretating Date/Time 06/19/2017 23:07:16
== END 2017-06-19 16:09 | disposition home or self-care (01) ==
LOC: NEPE 11:38
DX: J44.1 Chronic obstructive pulmonary disease with (acute) exacerbation (principal); E07.9 Disorder of thyroid, unspecified; Z72.0 Tobacco use; Z88.0 Allergy status to penicillin
CPT/HCPCS: 71045; 71275; 80053; 83880; 84484; 85025; 85610; 85730; 93005; 94664; 99285; Q9967